=== PATIENT | female | born 1960 | race Caucasian/White ===

== ENCOUNTER 2019-10-16 13:40 | Emergency (ER) | payer MEDICARE ==
--- NOTE | 2019-10-16 13:42 | ERPHSYRPT ---
- History of Present Illness Time Seen by Provider: 10/16/19 13:42 Source: patient, EMS (4-5) Exam Limitations: no limitations Physician History: This is a morbidly obese 59-year-old white female who has a history of renal failure on dialysis, chronic anemia, coronary artery disease, hypertension, and presents with a 4 to 5-day history of vomiting intermittently and constipation. Patient had a chest x-ray performed today and this was a normal nonacute chest x-ray per radiology report. Has a history of arrhythmia disorder and is taking amiodarone for this. She also has GERD and rheumatoid arthritis. Patient takes metoprolol for her hypertension. Patient has sleep apnea as well. She also is hypothyroid on levothyroxine. Timing/Duration: day(s) Severity: moderate Associated Symptoms: nausea, vomiting, abdominal pain (Mild diffuse), heartburn Allergies/Adverse Reactions: celecoxib [From Celebrex] Allergy (Intermediate, Verified 07/18/19 09:38) Hives Sulfa (Sulfonamide Antibiotics) Allergy (Intermediate, Verified 07/18/19 09:38) Hives Home Medications: Amiodarone HCl 200 mg [Cordarone 200 MG] 200 mg PO DAILY 02/12/19 [History ] Aspirin EC 81 mg [Ecotrin 81 mg] 81 mg PO DAILY 02/12/19 [History] Atorvastatin Calcium [Lipitor] 10 mg PO HS 02/12/19 [History] Clopidogrel Bisulfate 75 mg [PLAVIX 75 MG Tablet] 75 mg PO DAILY 02/12/19 [History] Ferric Citrate [Auryxia] 210 mg PO AC 02/12/19 [History] Folic Acid 1 mg [Folate 1 mg] 1 mg PO DAILY 02/12/19 [History] Metoprolol Tartrate 25 mg [Lopressor 25MG Tab] 25 mg PO DAILY 02/12/19 [ History] Midodrine HCl 5 mg [Proamatine 5 mg] 10 mg PO TID 02/12/19 [History] Oxycodone HCl/Acetaminophen [Oxycodone-Acetaminophen 5-325] 1 each PO Q4HPRN PRN 02/12/19 [History] Pramipexole Di-HCl 0.5 mg [Mirapex 0.5 MG Tablet] 0.5 mg PO HS 02/12/19 [ History] Venlafaxine HCl ER 75 mg [Effexor XR 75 MG] 75 mg PO DAILY 02/12/19 [ History] raNITIdine HCL [Ranitidine HCl] 300 mg PO DAILY 02/12/19 [History] Levothyroxine Sodium [Synthroid] 175 mcg PO DAILY 06/06/19 [History] Travel Risk - International Travel Have you traveled outside of the country in past 3 weeks: No Have you or anyone close to you been diagnosed with or: No Do your reside in a community with a known COVID-19 case?: Yes - Coronavirus Screening Has patient experienced Coronavirus symptoms: No - Review of Systems Constitutional: No Symptoms Eyes: No Symptoms Ears, Nose, & Throat: No Symptoms Respiratory: No Symptoms Cardiac: No Symptoms Abdominal/Gastrointestinal: Abdominal Pain, Nausea, Vomiting, Constipation Genitourinary Symptoms: No Symptoms Musculoskeletal: No Symptoms Skin: No Symptoms Neurological: No Symptoms Psychological: No Symptoms Endocrine: No Symptoms Hematologic/Lymphatic: No Symptoms Immunological/Allergic: No Symptoms All Other Systems: Reviewed and Negative - Past Medical History Pertinent Past Medical History: Yes Neurological History: No Pertinent History ENT History: No Pertinent History Cardiac History: Arrhythmia, High Cholesterol, Hypertension, Myocardial Infarction ([place]), Other Respiratory History: Sleep Apnea Endocrine Medical History: Hypothyroidism Musculoskeletal History: Rheumatoid Arthritis GI Medical History: GERD History: Dialysis, Renal Disease Psycho-Social History: Depression Female Reproductive Disorders: No Pertinent History Other Medical History: currently in afib. has permacath to right chest and cvl port to left chest. anemia and Thrombocytopenia purpura - Past Surgical History Past Surgical History: Yes Cardiac: Vascular Surgery Respiratory: No Pertinent History Gastrointestinal: Cholecystectomy Genitourinary: No Pertinent History Musculoskeletal: Orthopedic Surgery Female Surgical History: No Pertinent History Other Surgical History: cvl port placed and perma cath placed. left ankle FX - Social History Smoking Status: Current every day smoker Exposure to second hand smoke: No Drug Use: none - Nursing Vital Signs Nursing Vital Signs: Initial Vital Signs Temperature 98.7 F 10/16/19 13:41 Pulse Rate 68 10/16/19 13:41 Respiratory Rate 22 10/16/19 13:41 Blood Pressure 86/68 10/16/19 13:41 O2 Sat by Pulse Oximetry 96 10/16/19 13:41 Pain Scale Pain Intensity 8 - Physical Exam General Appearance: moderate distress, alert, anxiety, obese Eye Exam: PERRL/EOMI, eyes nml inspection Ears, Nose, Throat Exam: normal ENT inspection, moist mucous membranes Neck Exam: normal inspection, non-tender, supple, full range of motion Respiratory Exam: normal breath sounds, lungs clear, airway intact, No chest tenderness, No respiratory distress Cardiovascular Exam: regular rate/rhythm, normal heart sounds, normal peripheral pulses Gastrointestinal/Abdomen Exam: soft, normal bowel sounds, tenderness (Diffuse), No guarding, No rebound Pelvic Exam: not done Rectal Exam: not done Back Exam: normal inspection, normal range of motion, vertebral tenderness, No CVA tenderness Extremity Exam: normal inspection, normal range of motion, pelvis stable Neurologic Exam: alert, oriented x 3, cooperative, supervisor cartography II-XII nml as tested Skin Exam: normal color, warm, dry Lymphatic Exam: No adenopathy SpO2 Interpretation: normal O2 Delivery: Room Air - Course Nursing assessment & vital signs reviewed: Yes Ordered Tests: Active Orders 24 hr Category Date Time Status IV Insertion STAT Care 10/16/19 14:13 Active ABDOMEN AND PELVIS W/0 CONTRAS [CT] Stat Exams 10/16/19 14:13 Completed AMYLASE Stat Lab 10/16/19 14:35 Completed BLOOD CULTURE Stat Lab 10/16/19 14:40 Received CBC W DIFF Stat Lab 10/16/19 14:35 Completed CMP Stat Lab 10/16/19 14:35 Completed CULTURE,URINE Stat Lab 10/16/19 15:30 Received LIPASE Stat Lab 10/16/19 14:35 Completed Lactic Acid Stat Lab 10/16/19 14:13 Completed TROPONIN Q3H Lab 10/16/19 14:35 Completed TROPONIN Q3H Lab 10/16/19 17:15 Ordered TROPONIN Q3H Lab 10/16/19 20:15 Ordered TROPONIN Q3H Lab 10/16/19 23:15 Ordered TROPONIN Q3H Lab 10/17/19 02:15 Ordered UA W/RFX UR CULTURE Stat Lab 10/16/19 15:30 Completed Medication Summary Discontinued Medications Generic Name Dose Route Start Last Admin Trade Name Freq PRN Reason Stop Dose Admin Hydromorphone HCl 0.5 mg 10/16/19 15:53 10/16/19 16:03 Hydromorphone 1 Mg/Ml Ampule IV 10/16/19 15:54 0.5 mg STAT ONE Administration Hydromorphone HCl Confirm 10/16/19 16:01 Hydromorphone 1 Mg/Ml Ampule Administered 10/16/19 16:02 Dose 1 mg .ROUTE .STK-MED ONE Sodium Chloride 1,000 mls @ 999 mls/hr 10/16/19 14:13 10/16/19 15:53 Sodium Chloride 0.9% 1000 Ml IV 10/16/19 15:13 Infused .Q1H1M STA Infusion Sodium Chloride Confirm 10/16/19 14:26 Sodium Chloride 0.9% 1000 Ml Administered 10/16/19 14:27 Dose 1,000 mls @ ud .ROUTE .STK-MED ONE Ondansetron HCl 4 mg 10/16/19 14:13 10/16/19 14:28 Zofran 4 Mg/2 Ml Vial IV 10/16/19 14:14 4 mg STAT ONE Administration Ondansetron HCl Confirm 10/16/19 14:26 Zofran 4 Mg/2 Ml Vial Administered 10/16/19 14:27 Dose 4 mg .ROUTE .STK-MED ONE Pantoprazole Sodium 40 mg 10/16/19 14:53 10/16/19 15:01 Protonix 40 Mg Iv IV 10/16/19 14:54 40 mg STAT ONE Administration Pantoprazole Sodium Confirm 10/16/19 14:59 Protonix 40 Mg Iv Administered 10/16/19 15:00 Dose 40 mg IV .STK-MED ONE Lab/Rad Data: Laboratory Result Diagrams 10/16/19 14:35 10/16/19 14:35 Laboratory Results 10/16/19 10/16/19 10/16/19 Range/Units 15:30 14:35 14:35 WBC (4.0-10.5) K/mm3 RBC (4.1-5.4) M/mm3 Hgb (12.0-16.0) gm/dl Hct (35-47) % MCV (78-100) fl MCH (26-32) pg MCHC (32-36) g/dl RDW (11.5-14.0) % Plt Count (150-450) K/mm3 MPV (7.5-11.0) fl Gran % (36.0-66.0) % Eos # (Auto) (0-0.5) Absolute Lymphs (auto) (1.0-4.6) Absolute Monos (auto) (0.0-1.3) Lymphocytes % (24.0-44.0) % Monocytes % (0.0-12.0) % Eosinophils % (0.00-5.0) % Basophils % (0.0-0.4) % Absolute Granulocytes (1.4-6.9) Basophils # (0-0.4) Sodium 134 L (137-145) mmol/L Potassium 4.0 (3.5-5.1) mmol/L Chloride 86 L (98-107) mmol/L Carbon Dioxide 31 H (22-30) mmol/L Anion Gap 21.2 H (5-15) MEQ/L BUN 24 H (7-17) mg/dL Creatinine 2.98 H (0.52-1.04) mg/dL Estimated GFR 17.1 ML/MIN Glucose 132 H (74-106) mg/dL Lactic Acid (0.4-2.0) Calcium 9.7 (8.4-10.2) mg/dL Total Bilirubin 1.80 H (0.2-1.3) mg/dL AST 71 H (14-36) U/L ALT 102 H (0-35) U/L Alkaline Phosphatase 157 H (38-126) U/L Troponin I 0.068 H* (0.000-0.034) ng/mL Serum Total Protein 9.1 H (6.3-8.2) g/dL Albumin 4.7 (3.5-5.0) g/dL Amylase 223 H (30-110) U/L Lipase 47 (23-300) U/L Urine Color MICHAEL (YELLOW) Urine Appearance CLOUDY (CLEAR) Urine pH 5.0 (5-6) Ur Specific [place] 1.024 (1.005-1.025) Urine Protein 30 (Negative) Urine Ketones NEGATIVE (NEGATIVE) Urine Blood NEGATIVE (0-5) Jose Ramon/ul Urine Nitrite NEGATIVE (NEGATIVE) Urine Bilirubin SMALL (NEGATIVE) Urine Urobilinogen 2 (0-1) mg/dL Ur Leukocyte Esterase TRACE (NEGATIVE) Urine WBC (Auto) 6-10 (0-5) /HPF Urine RBC (Auto) NONE (0-2) /HPF U Hyaline Cast (Auto) 11-25 (0-2) /LPF U Epithel Cells (Auto) RARE (FEW) /HPF Urine Bacteria (Auto) FEW (NEGATIVE) /HPF U Non-Squamous Epi Cells RARE (FEW) /HPF Urine Mucus (Auto) SLIGHT (NEGATIVE) /HPF Urine Culture Reflexed YES (NO) Urine Glucose NEGATIVE (NEGATIVE) mg/dL Slides for Path Review 10/16/19 10/16/19 Range/Units 14:35 14:13 WBC 5.9 (4.0-10.5) K/mm3 RBC 3.99 L (4.1-5.4) M/mm3 Hgb 11.9 L (12.0-16.0) gm/dl Hct 38.7 (35-47) % MCV 97.0 (78-100) fl MCH 29.8 (26-32) pg MCHC 30.7 L (32-36) g/dl RDW 18.9 H (11.5-14.0) % Plt Count 51 L (150-450) K/mm3 MPV 11.7 H (7.5-11.0) fl Gran % 74.3 H (36.0-66.0) % Eos # (Auto) 0.25 (0-0.5) Absolute Lymphs (auto) 0.64 L (1.0-4.6) Absolute Monos (auto) 0.61 (0.0-1.3) Lymphocytes % 10.9 L (24.0-44.0) % Monocytes % 10.4 (0.0-12.0) % Eosinophils % 4.2 (0.00-5.0) % Basophils % 0.2 (0.0-0.4) % Absolute Granulocytes 4.38 (1.4-6.9) Basophils # 0.01 (0-0.4) Sodium (137-145) mmol/L Potassium (3.5-5.1) mmol/L Chloride (98-107) mmol/L Carbon Dioxide (22-30) mmol/L Anion Gap (5-15) MEQ/L BUN (7-17) mg/dL Creatinine (0.52-1.04) mg/dL Estimated GFR ML/MIN Glucose (74-106) mg/dL Lactic Acid 1.9 (0.4-2.0) Calcium (8.4-10.2) mg/dL Total Bilirubin (0.2-1.3) mg/dL AST (14-36) U/L ALT (0-35) U/L Alkaline Phosphatase (38-126) U/L Troponin I (0.000-0.034) ng/mL Serum Total Protein (6.3-8.2) g/dL Albumin (3.5-5.0) g/dL Amylase (30-110) U/L Lipase (23-300) U/L Urine Color (YELLOW) Urine Appearance (CLEAR) Urine pH (5-6) Ur Specific [place] (1.005-1.025) Urine Protein (Negative) Urine Ketones (NEGATIVE) Urine Blood (0-5) Jose Ramon/ul Urine Nitrite (NEGATIVE) Urine Bilirubin (NEGATIVE) Urine Urobilinogen (0-1) mg/dL Ur Leukocyte Esterase (NEGATIVE) Urine WBC (Auto) (0-5) /HPF Urine RBC (Auto) (0-2) /HPF U Hyaline Cast (Auto) (0-2) /LPF U Epithel Cells (Auto) (FEW) /HPF Urine Bacteria (Auto) (NEGATIVE) /HPF U Non-Squamous Epi Cells (FEW) /HPF Urine Mucus (Auto) (NEGATIVE) /HPF Urine Culture Reflexed (NO) Urine Glucose (NEGATIVE) mg/dL Slides for Path Review YES - Progress Progress: re-examined Progress Note: 10/16/19 16:51 And complained of nausea and heartburn. The symptoms did not respond much to Zofran, Protonix or Dilaudid. I held off on GI cocktail because the patient had come in with retching and vomiting. It is Clear after the CAT scan results returned that the patient has small bowel obstruction at the level of the umbilicus. She has a significantly distended stomach full of fluid and this is likely the cause of her symptoms and her symptoms will improve with decompression with an NG tube. 10/16/19 16:56 I spoke with the patient's special education teacher Dr. Garcia and he accepts the patient to be transferred to [facility]. Discussed with : Other Counseled pt/family regarding: lab results, diagnosis, need for follow-up, rad results - Departure Departure Disposition: Transfer Clinical Impression: Small bowel obstruction, Renal failure, Vomiting Condition: Fair Critical Care Time: No Referrals: ANAID GANDHI [LOCATION] -
[2019-10-16] MEDS ORDERED: Zofran 4 MG/2 ML VIAL IV ONE (14:13)
[2019-10-16] MEDS ORDERED: Sodium Chloride 0.9% 1000 ML 1,000 ML IV STA (14:13)
[2019-10-16] MEDS ORDERED: Sodium Chloride 0.9% 1000 ML 1,000 ML ONE (14:26)
[2019-10-16] MEDS ORDERED: Zofran 4 MG/2 ML VIAL ONE (14:26)
[2019-10-16] MEDS ORDERED: PROTONIX 40 MG IV IV ONE ×2 (14:53→14:59)
[2019-10-16 15:05] LABS: Absolute Neutrophil Ct (ANC) 4.38 (1.4-6.9); BASOPHIL % 0.2 % (0.0-0.4); Basophil (Absolute #) 0.01 (0-0.4); Eosinophil % 4.2 % (0.00-5.0); Eosinophil (Absolute #) 0.25 (0-0.5); Hematocrit 38.7 % (35-47); Hemoglobin 11.9 gm/dl (12.0-16.0); Lymphocyte (Absolute #) 0.64 (1.0-4.6); Lymphocytes % 10.9 % (24.0-44.0); Mean Corpuscular Hemoglobin 29.8 pg (26-32); Mean Corpuscular Hgb Concent. 30.7 g/dl (32-36); Mean Platelet Volume 11.7 fl (7.5-11.0); Monocyte (Absolute #) 0.61 (0.0-1.3); Monocytes % 10.4 % (0.0-12.0); Neutrophil % 74.3 % (36.0-66.0); Platelet Count 51 K/mm3 (150-450); Red Blood Count 3.99 M/mm3 (4.1-5.4); Red Cell Distribution Width 18.9 % (11.5-14.0); White Blood Count 5.9 K/mm3 (4.0-10.5)
[2019-10-16 15:22] LABS: ALBUMIN 4.7 g/dL (3.5-5.0); ANION GAP 21.2 MEQ/L (5-15); BILIRUBIN,TOTAL 1.8 mg/dL (0.2-1.3); Calcium 9.7 mg/dL (8.4-10.2); Creatinine 1 2.98 mg/dL (0.52-1.04); Total Protein 9.1 g/dL (6.3-8.2)
[2019-10-16] MEDS ORDERED: Hydromorphone 1 mg/ml Ampule IV ONE (15:53)
[2019-10-16 15:58] LABS: Slide Review 1 YES
[2019-10-16] MEDS ORDERED: Hydromorphone 1 mg/ml Ampule ONE (16:01)
[2019-10-16 16:03] LABS: Appearance CLOUDY (CLEAR); Bacteria FEW /HPF (NEGATIVE); Bilirubin SMALL (NEGATIVE); Blood NEGATIVE Ery/ul (0-5); Epithelial Cells RARE /HPF (FEW); Glucose NEGATIVE (NEGATIVE); Ketones NEGATIVE (NEGATIVE); Leukocyte Esterase TRACE (NEGATIVE); Mucus SLIGHT /HPF (NEGATIVE); Nitrite NEGATIVE (NEGATIVE); Non-Squamous Epithelial Cells RARE /HPF (FEW); Protein,Urine Dip 30 (Negative); Specific Gravity 1.024 (1.005-1.025); Urobilinogen 2 mg/dL (0-1)
--- NOTE | 2019-10-16 16:32 | XRAY ---
Indication: Abdomen pain, vomiting, and constipation. Multiple contiguous axial images obtained through the abdomen and pelvis without contrast as ordered. Comparison: None Lung bases demonstrates bilateral hazy airspace opacities without consolidation/effusion. Small right middle lobe calcified granuloma. Heart is enlarged. There is moderate sized fluid distended hiatal hernia. Stomach is significantly fluid distended and the small bowel loops are moderately fluid distended up to 5.6 cm in diameter with asynchronous fluid leveling favoring small bowel obstruction. Small bowel obstruction is due to a midline ventral hernia defect at the level of the umbilicus at least 3.5 cm in diameter with herniated decompressed small bowel loops. No free fluid/air. Mild diffuse scattered colonic fecal debris throughout. Previous cholecystectomy and 13 cm splenomegaly with tiny splenic calcified granulomas. Kidneys are mildly atrophic bilaterally with 1.8 cm left mid renal exophytic cyst. Uterus is atrophic or surgically absent. Remaining liver, pancreas, spleen, adrenal glands, kidneys, ureters, and bladder appear unremarkable for noncontrast exam. Moderate scattered aortoiliac calcifications without AAA. Osseous structures demonstrates mild/moderate multilevel degenerative thoracolumbar spondylosis, 1 cm L4 spondylolisthesis, moderate dextrorotoscoliosis centered at T12, and remote-appearing T11 superior endplate fracture with 75% height loss. Impression: 1. Midline ventral hernia at the level of the umbilicus with herniated small bowel loops producing small bowel obstruction as detailed. Resulting massively fluid distended stomach and fluid distended hiatal hernia. No free air. Also diffuse fecal stasis. 2. Bilateral renal atrophy with left renal cyst. 3. Hazy air space disease in both lung bases. 4. Incidental cardiomegaly, splenomegaly, chronic bony findings, and evidence for old granulomatous disease.
[2019-10-16 18:07] VITALS: BP 95/72; PULSE 92; O2SAT 94
--- NOTE | 2019-10-17 08:19 | XRAY ---
Indication: NG tube placement. Comparison: None KUB demonstrates NG tube tip left upper quadrant abdomen presumed in the stomach. Bowel gas pattern demonstrates CT proven small bowel obstruction and fecal stasis. Incidental cholecystectomy clips, multilevel degenerative spondylosis, and dextrorotoscoliosis.
== END 2019-10-16 18:50 | disposition short-term general hospital (02) ==
LOC: ED 13:40
DX: K56.609 Unspecified intestinal obstruction, unspecified as to partial versus complete obstruction (principal); N19 Unspecified kidney failure; Z99.2 Dependence on renal dialysis; D53.9 Nutritional anemia, unspecified; I25.10 Atherosclerotic heart disease of native coronary artery without angina pectoris; I10 Essential (primary) hypertension; K21.9 Gastro-esophageal reflux disease without esophagitis; M06.9 Rheumatoid arthritis, unspecified; G47.30 Sleep apnea, unspecified; E03.9 Hypothyroidism, unspecified; Z79.899 Other long term (current) drug therapy; I25.2 Old myocardial infarction; Z72.0 Tobacco use
CPT/HCPCS: 36000; 36415; 74018; 74176; 80053; 81001; 82150; 83605; 83690; 84484; 85025; 87040; 87086; 96360; 96374; 96375; 99285; J1170; J2405